=== PATIENT | female | born 2005 | race Two or more races ===

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

== ENCOUNTER 2025-06-18 16:41 | Emergency (ER) | payer OTHER ==
[~2025-06-18] VITALS: Ht 157.5 cm; Wt 54.4 kg
[~2025-06-18 16:41] MED LIST: INTESTINEX680 M2 PO; ONDANSETRON ODT8 MG PO; PEPCID40 MG PO
[2025-06-18] MEDS ORDERED: PROZAC20 MG PO (16:58)
[2025-06-18] MEDS ORDERED: ANTICONCEPTIVOS (16:58)
[2025-06-18] MEDS ORDERED: RISPERIDONE O0.25 MG (16:58)
[2025-06-18] MEDS ORDERED: FAMOTIDINE/PF 20 MG/2 ML VIAL IV STA (17:23)
[2025-06-18] MEDS ORDERED: ONDANSETRON HCL 2 MG/ML VIAL IV STA (17:23)
[2025-06-18] MEDS ORDERED: ONDANSETRON HCL 2 MG/ML VIAL ONE (17:25)
[2025-06-18] MEDS ORDERED: FAMOTIDINE/PF 20 MG/2 ML VIAL ONE (17:25)
[2025-06-18 18:17] LABS: BASO % 0.3 % (0.1-1.2); EOS # 0.24 (0.04-0.54); EOS % 2.5 % (0.7-7.0); LYMPH # 1.35 (1.18-3.74); LYMPH % 14.3 % (19.3-53.1); MEAN PLATELET VOLUME 9.50 fl (9.4-12.4); MONO # 0.77 (0.24-0.82); MONO % 8.2 % (4.7-12.5); NEUT # 7.02 (1.56-6.13); NEUT % 74.5 % (34.0-71.1); RED CELL DISTRIBUTION WIDTH 11.9 % (11.6-14.4)
[2025-06-18 18:26] LABS: BUN CREA RATIO 13.0 (7.0-25.0); CREATININE SERUM 0.63 mg/dL (0.55-1.02); GFR 121.73; GLUCOSE FASTING 84.0 mg/dL (65-100); OSMOLALITY SERUM 281.0 MOSM/KG (275-295)
[2025-06-18 19:14] LABS: URINE APPEARANCE Clear; URINE BILIRRUBIN Negative (NEGATIVE); URINE BLOOD Trace; URINE COLOR Yellow; URINE GLUCOSE Negative (NEGATIVE); URINE LEUKOCYTE Negative; URINE NITRATE Negative; URINE PROTEIN Trace (NEGATIVE); URINE UROBILINOGEN 0.2 E.U./dl
[2025-06-18 19:18] LABS: URINE BACTERIA 927.4 uL (0.0-1933); URINE EPITHELIAL CELLS 17.0 uL (0.0-38.8); URINE RBC 11.8 uL (0.0-20.8); URINE WBC 21.3 uL (0.0-23.2)
[2025-06-18 19:26] LABS: URINE CAST 0.29 uL (0.0-1.40); URINE KETONE >=160 (NEGATIVE)
[2025-06-18] MEDS ORDERED: 0.9 % SODIUM CHLORIDE 1,000 ML IV SCH (20:00)
[2025-06-18] MEDS ORDERED: 0.9 % SODIUM CHLORIDE 500 ML IV SCH (20:00)
[2025-06-18 23:23] LABS: BUN CREA RATIO 14.0 (7.0-25.0); CREATININE SERUM 0.49 mg/dL (0.55-1.02); GFR 162.69; GLUCOSE FASTING 84.0 mg/dL (65-100); OSMOLALITY SERUM 286.0 MOSM/KG (275-295)
== END 2025-06-19 00:29 | disposition home or self-care (01) ==
LOC: ER 16:41 → EMR PED 16:44 → ER 16:44 → EMR PED 06-19 00:29
PROVIDERS: Pediatrics